=== PATIENT | female | born 1990 | race Caucasian/White ===

== ENCOUNTER 2018-03-13 09:30 | Day surgery (SDC) | payer BC ==
[2018-03-13 10:08] VITALS: BMI 27.3
[2018-03-13 10:59] LABS: FFN Internal QC Analyzer PASS (PASS); FFN Internal QC Cassette PASS (PASS); Fetal Fibronectin Negative (Negative)
[2018-03-13] MEDS ORDERED: Butorphanol Tartrate 1 MG/ML VIAL ONE (12:01)
[2018-03-13] MEDS ORDERED: NIFEdipine 10 MG CAP PO PRN (12:32)
[2018-03-13] MEDS ORDERED: NIFEdipine 10 MG CAP PO SCH (12:45)
[2018-03-13] MEDS: NIFEdipine 10 MG CAP PO SCH ×2 (13:26→14:08)
[2018-03-13 15:31] VITALS: BP 133/83; TEMP 97.8
--- NOTE | 2018-03-13 15:32 | PDOC.EVN ---
Event Note - Event Note Event Note: Nifedipine 20 mg x 3 per protocol ordered by Dr. Sotelo. FHTs remained stable. UCs diminished. DC home per Dr. Sotelo, has f/u appt. set with her.
--- NOTE | 2018-03-14 03:43 | SS ---
DATE OF ADMISSION: 03/13/2018 DATE OF DISCHARGE: 03/13/2018 Labor And Delivery Triage Note REGULAR PHYSICIAN: Elizabeth Sotelo MD EVALUATING PHYSICIAN: Dell Davidson MD CHIEF COMPLAINT: Decreased heart tones in the office, contractions. HISTORY OF PRESENT ILLNESS: Ms. Dennison is a 27-year-old white G1, P0 with an estimated date of confinement of 05/20/2018, who presents from Dr. Sotelo's office with complaints of decreased heart tones with Doppler at her office visit. She was apparently placed on the NST machine and was found to have regular contractions. She was sent here for evaluation. She denies ruptured membranes or vaginal bleeding. Her care has been with Dr. Sotelo. She states that she has had irregular contractions since 18 weeks. PAST MEDICAL HISTORY: Polycystic ovarian syndrome. PAST SURGICAL HISTORY: None. CURRENT MEDICATIONS: vitamins. ALLERGIES: NO KNOWN ALLERGIES. SOCIAL HISTORY: Denies tobacco, alcohol, or drug use. FAMILY HISTORY: Unremarkable. REVIEW OF SYSTEMS: Denies nausea, vomiting, fever, chills, vaginal bleeding or ruptured membranes. PHYSICAL EXAMINATION: VITAL SIGNS: In triage, her vital signs are stable and she is afebrile. GENERAL: She is well-appearing, in no acute distress. ABDOMEN: Soft, nontender, and gravid. heart rate tracing is stable and there are no decelerations. It is reassuring. Uterine contractions were initially seen every 4 to 11 minutes. Pelvic examination after a fibronectin was obtained, showed the cervix to be closed and 50% effaced in this mid position. ASSESSMENT: 1. 30 and 2/7th weeks intrauterine . 2. Reassuring heart rate tracing. 3. contractions, rule out labor. PLAN: Dr. Sotelo has ordered IV fluids and a fibronectin is pending. She will continue to be monitored and observed. Job ID: [id number]
== END 2018-03-13 14:45 | disposition home health service (06) ==
LOC: L&D/OP 09:30
PROVIDERS: ATTEND Obstetrics & Gynecology
DX: O36.8130 Decreased fetal movements, third trimester, not applicable or unspecified (principal); O47.03 False labor before 37 completed weeks of gestation, third trimester; O99.283 Endocrine, nutritional and metabolic diseases complicating pregnancy, third trimester; E28.2 Polycystic ovarian syndrome; Z3A.30 30 weeks gestation of pregnancy
CPT/HCPCS: 82731; J0595

== ENCOUNTER 2018-05-02 14:27 | Day surgery (SDC) | payer BC ==
[2018-05-02 14:54] VITALS: BMI 29.9
--- NOTE | 2018-05-02 20:32 | HP ---
REASON FOR VISIT: Sent over from clinic for elevated blood pressures. HISTORY OF PRESENT ILLNESS: This is a 27-year-old G1, P0, at 37 weeks and 3 days by last menstrual period, who presented to clinic today for routine OB care. She had been monitoring her blood pressures for the last several weeks, and in the last several days, the blood pressures have been 140s/90s at home. The patient endorsed some increase in blurry vision as well. In clinic, her blood pressure was 162/88 and recheck was 140/80. She had a UA in the office that showed negative protein. She was dispositioned for triage visit with serial blood pressures. In triage, she denies any vaginal bleeding, leakage of fluid. Occasional contractions. Denies any vision changes, right upper quadrant pain, or headache. She endorses good movement. REVIEW OF SYSTEMS: Negative except as noted in HPI. OB HISTORY: Prior history of contractions. No other complications during this . PAST MEDICAL HISTORY: Hyperlipidemia. PAST SURGICAL HISTORY: Negative. SOCIAL HISTORY: Negative x3. FAMILY HISTORY: Noncontributory. CURRENT MEDICATIONS: vitamins. ALLERGIES: NO KNOWN DRUG ALLERGIES. PHYSICAL EXAMINATION: VITAL SIGNS: Blood pressure ranges from 99 to 137 over 55, highest up to 91. She has only had one mild range pressures that was 137/91. Other vital signs within normal limits. GENERAL: No acute distress. CARDIAC: Regular rate and rhythm. LUNGS: Clear to auscultation bilaterally. ABDOMEN: Soft, nontender, gravid. EXTREMITIES: No edema, cyanosis, or clubbing. External monitor, baseline is 130, moderate jhvc-ui-oyab variability. Positive accelerations. No decelerations. [place] shows contractions approximately every 2 to 10 minutes. ASSESSMENT/PLAN: This is a 27-year-old G1, P0, at 37 weeks and 3 days for rule out preeclampsia. The patient had a UA in my office that was negative for protein. She has a normal range pressures for 2 hours and on serial blood pressures with the exception of a single 137/91. She will continue to monitor blood pressures at home. She is asymptomatic at this time. The blurry vision had long resolved after leaving the clinic, she has no restrictions and was given strict preeclampsia warnings. She has an appointment with me on Saturday of next week. FHTs are category 1. status is reassuring. Job ID: [id number]
== END 2018-05-02 18:13 | disposition home or self-care (01) ==
LOC: L&D/OP 14:27
PROVIDERS: ATTEND Student in an Organized Health Care Education/Training Program
DX: O99.89 Other specified diseases and conditions complicating pregnancy, childbirth and the puerperium (principal); R03.0 Elevated blood-pressure reading, without diagnosis of hypertension; E78.5 Hyperlipidemia, unspecified; Z3A.37 37 weeks gestation of pregnancy
CPT/HCPCS: 99282

== ENCOUNTER 2018-05-14 22:00 | Inpatient (IN) | payer BC ==
[2018-05-15] MEDS ORDERED: Diphenoxylate HCl/Atropine Tablet PO PRN (06:17)
[2018-05-15] MEDS ORDERED: Butorphanol Tartrate 1 MG/ML VIAL SLOW IVP PRN (06:17)
[2018-05-15] MEDS ORDERED: Ibuprofen 800 MG TAB PO PRN (06:17)
[2018-05-15] MEDS ORDERED: Misoprostol 200 MCG TAB PR PRN (06:17)
[2018-05-15] MEDS ORDERED: Carboprost 250 MCG/ML AMP IM PRN (06:17)
[2018-05-15] MEDS ORDERED: Methylergonovine 0.2 MG/ML VIAL IM PRN (06:17)
[2018-05-15] MEDS ORDERED: Ondansetron PF 4 MG/2 ML Vial IVP PRN ×3 (06:17→20:41)
[2018-05-15] MEDS ORDERED: NS / Oxytocin 40 units/1000ml 1,000 ML IV PRN (06:17)
[2018-05-15] MEDS ORDERED: Acetaminophen 500 MG TAB PO PRN (06:17)
[2018-05-15] MEDS ORDERED: HYDROcodone/Acetaminophen 5/325 mg Tablet PO PRN ×2 (06:17→20:41)
[2018-05-15] MEDS ORDERED: Lidocaine 1% (PF) 30 ML VIAL SC PRN (06:17)
[2018-05-15] MEDS ORDERED: Promethazine HCl 25 MG/ML VIAL IM PRN ×2 (06:17→08:35)
[2018-05-15] MEDS ORDERED: Penicillin G Potassium 5 MILL.UNITS in Sodium Chloride 0.9% 100 ML IVPB SCH (06:30)
[2018-05-15] MEDS ORDERED: NS w/ Oxytocin 10 units 500 ML IV SCH (06:30)
[2018-05-15 07:49] LABS: Hemoglobin 12.9 g/dL (12.0-16.0); Mean Corpuscular HGB CONC 34.1 g/dL (32.0-36.0); Mean Corpuscular Hemoglobin 30.4 pg (27.0-31.0); Mean Corpuscular Volume 89.2 fL (78.0-98.0); Mean Platelet Volume 9.2 fL (7.4-10.4); Platelet Count 191 thou/uL (130-400); RBC Distribution Width 12.1 % (11.5-14.5); Red Blood Cell (RBC) Count 4.23 mill/uL (4.20-5.40); White Blood Cell (WBC) Count 10.6 thou/uL (4.8-10.8)
[2018-05-15] MEDS: Lactated Ringer's 1,000 ML IV SCH ×3 (07:57→14:48)
--- NOTE | 2018-05-15 08:08 | PDOC.LDHP ---
Labor and Delivery H&P Chief complaint: scheduled induction HPI: 27yo at 39w2d by LMP c/w 9w sono for elective IOL. No complaints, no sx PIH. BP has been mild at home yesterday. Good FM. Current gestational age (weeks): 39 Due date: 05/20/18 Dating criteria: last menstrual period Grav: 1 Para: 0 Current complications: none Abnormal US findings: No Past Medical History: HLD Current medications: pre-juan vitamins Previous surgical history: none Allergies/Adverse Reactions: Allergies Allergy/AdvReac Type Severity Reaction Status Date / Time No Known Allergies Allergy Verified 05/15/18 08:04 Social history: none - Physical Exam Vital signs reviewed and normal: yes General: NAD Heart: RRR Lungs: CTAB Abdomen: gravid Extremeties: no edema FHT: category 1 [place] contractions every: 2-4min - Vaginal Exam cm dilated: 3 Effacement: 75% Station: -1 (arom clear) - OB Labs Blood type: A RH: positive Antibody Screen: negative HIV: negative RPR: negative HEPSAg: negative 1 hour GCT: negative GBS: positive Urine drug screen: negative Rubella: immune - Assessment L&D Assessment: elective induction at term - Plan Plan: admit to L&D, labor augmentation if indicated, GBS antibiotic prophylaxis , informed consent obtained, anesthesia consult for pain management
[2018-05-15 08:17] VITALS: BMI 29.9
[2018-05-15 08:29] LABS: HBSAg Index 0.32 S/CO (0-0.99); Hep B Surf Ag Non-Reactive S/CO (NonReactive); Syphilis Antibody Nonreactive (Nonreactive); Syphilis Antibody Index 0.04 S/CO (<1.00 Non-Reactive)
[2018-05-15] MEDS ORDERED: Fentanyl 4 mcg/Bup 0.1% Cadd 100 ML ONE ×2 (08:30→14:44)
[2018-05-15] MEDS ORDERED: Eucerin (Mineral Oil/Petrolatum,White) 30 gm Jar TOP PRN (08:35)
[2018-05-15] MEDS ORDERED: diphenhydrAMINE 50 MG/ML VIAL IVP PRN (08:35)
[2018-05-15] MEDS ORDERED: Lactated Ringer's 500 ML IV PRN (08:35)
[2018-05-15] MEDS ORDERED: ePHEDrine/0.9% NaCl/PF SYRINGE 50 mg/10 ml SLOW IVP PRN (08:35)
[2018-05-15] MEDS ORDERED: Acetaminophen 325 MG TAB PO PRN (08:35)
[2018-05-15] MEDS ORDERED: Naloxone HCl 0.4 mg/ml Vial IVP PRN ×2 (08:35)
[2018-05-15] MEDS ORDERED: Lidocaine 1.5%/Epinephrine 1:200,000 5 ML AMPUL IJ ONE (08:41)
[2018-05-15] MEDS ORDERED: Communication Order-Pharmacy FS SCH (08:45)
[2018-05-15] MEDS: Fentanyl 4 mcg/Bupivacaine 0.1% Cassette 100 ML EPIDURAL SCH ×2 (09:25→14:50)
[2018-05-15] MEDS: Penicillin G 2.5 MILL.units 2.5 MILL.UNITS in Premix Bag 1 BAG IVPB SCH ×4 (11:22→19:43)
[2018-05-15] MEDS ORDERED: Terbutaline Sulfate 1 MG/ML VIAL ONE (13:24)
[2018-05-15] MEDS ORDERED: NS / Oxytocin 40 units/1000ml 1,000 ML ONE (13:27)
--- NOTE | 2018-05-15 14:15 | PDOC.LDPN ---
Labor & Delivery Progress Note - Subjective Subjective: comfortable - Objective Vital signs reviewed and normal: yes General: NAD Uterine fundus: non tender Dilation: 9 Effacement: 100% Station: 1+ FHT: category 2 (after SVE pt had prolonged decel to 70s x 15min, would recover with scalp stim, finally improved with positioning, O2, IVF bolus, juice, pitocin off and terbutaline. ), early decelerations [place] contractions every: 2min FSE placed: yes Resuscitative measures: maternal oxygen, maternal IV fluids, maternal position change Plan: resuscitative measures (restart pit when strip cat 1 x 30min, FHT reassuring after resuscitation. ), other (BP elevated all of the sudden, send PIH labs, no sx PIH)
[2018-05-15 15:03] LABS: ALT (SGPT) 18 U/L (8-55); AST (SGOT) 24 U/L (5-34); Albumin 3.2 g/dL (3.5-5.0); Alkaline Phosphatase 151 U/L (40-150); Anion Gap 14 mmol/L (10-20); BUN (Urea Nitrogen) 10 mg/dL (7.0-18.7); Bilirubin, Total 0.3 mg/dL (0.2-1.2); Calc. Creatinine Clearance 131 mL/min (70-130); Calcium 8.7 mg/dL (7.8-10.44); Carbon Dioxide 22 mmol/L (22-29); Chloride 103 mmol/L (98-107); Estimated GFR-MDRD 82; Globulin 2.7 g/dL (2.4-3.5); Glucose 75 mg/dL (70-105); Potassium 3.6 mmol/L (3.5-5.1); Protein, Total 5.9 g/dL (6.0-8.3); Sodium 135 mmol/L (136-145)
[2018-05-15 17:49] LABS: Creatinine, Urine 40.77 mg/dL (47-110)
--- NOTE | 2018-05-15 18:02 | PDOC.OPDEL ---
OB Operative/Delivery Note Delivery Dr/Surgeon: Ashleigh Assist: n/a Pre-Delivery Diagnosis: elective induction Procedure/Post Delivery Dx: operative vaginal delivery (VE due to NRFHT) Weeks gestation: 39 Anesthesia: epidural - Findings A Sex: female - 1 min: 8 - 5 min: 8 - Additional Findings/Plan Placenta delivered: spontaneous Repaired Obstetrical Laceration: right labial (repaired with 2-0 vicryl in running fashion, excellent hemostasis) Estimated blood loss: 200cc Compilations/Other Findings: NC tight x 1 delivered through Post delivery plan: routine recovery
[2018-05-15] MEDS ORDERED: Milk Of Magnesia 30 ML UDCUP PO PRN (20:41)
[2018-05-15] MEDS ORDERED: Lanolin Ointment 7 GM TUBE TOP PRN (20:41)
[2018-05-15] MEDS ORDERED: Benzocaine-Menthol 82.5 ML CAN TOP PRN (20:41)
[2018-05-15] MEDS ORDERED: Bisacodyl 10 MG SUPP PR PRN (20:41)
[2018-05-15] MEDS ORDERED: Preparation H Ointment 28 GM TUBE PR PRN (20:41)
[2018-05-15] MEDS ORDERED: diphenhydrAMINE 25 MG CAP PO PRN (20:41)
[2018-05-15] MEDS ORDERED: NS / Oxytocin 40 units/1000ml 1,000 ML IV SCH (20:45)
[2018-05-15] MEDS: Docusate Calcium (SURFAK) 240 MG CAP PO SCH (21:48)
[2018-05-16] MEDS: Ibuprofen 800 MG TAB PO SCH ×4 (00:30→21:37)
[2018-05-16] MEDS: Ferrous Sulfate 325 MG TAB PO SCH ×2 (08:52→17:27)
[2018-05-16] MEDS: Prenatal Vitamin 1 TAB PO SCH (08:53)
[2018-05-16] MEDS: Docusate Calcium (SURFAK) 240 MG CAP PO SCH ×2 (08:53→21:37)
[2018-05-16] MEDS ORDERED: Adacel (T-DAP) 0.5 ML SYRINGE IM ONE (09:00)
--- NOTE | 2018-05-16 12:18 | PDOC.PP ---
Post Progress Note Post Day #: 1 PO intake tolerated: yes Flatus: yes Ambulation: yes Vital Signs (12 hours) Temp Pulse Resp BP Pulse Ox 05/16/18 11:33 97.9 F 67 20 133/81 05/16/18 08:06 97.8 F 67 20 130/83 99 05/16/18 06:10 97.7 F 70 20 141/84 H 99 Weight Weight 180 lb - Physical Examination General: NAD Cardiovascular: RRR Respiratory: non-labored breathing Abdominal: no distention, appropriately TTP Fundus firm & at: umb Skin: no rash Neurological: no gross focal deficits Psychiatric: normal affect Result Diagrams: 05/15/18 07:33 05/15/18 14:20 Additional Labs: Post Labs Blood Type A POSITIVE 05/15/18 08:04 Hep Bs Antigen Non-Reactive S/CO (NonReactive) 05/15/18 07:33 - Assessment/Plan PPD1 s/p VAVD PEC- BP nl-mild, no sx PIH, negative labs. Vitals otherwise stable Doing well pain controlled lochia < menses Breastpumping, in NICU will prob be transitioned to low risk today. Rh pos RImm Cont PP care, DC tomorrow.
[2018-05-16] MEDS: HYDROcodone/Acetaminophen 5/325 mg Tablet PO PRN (22:18)
[2018-05-17] MEDS: HYDROcodone/Acetaminophen 5/325 mg Tablet PO PRN (05:56)
[2018-05-17] MEDS: Ibuprofen 800 MG TAB PO SCH ×2 (05:58→13:57)
[2018-05-17] MEDS: Ferrous Sulfate 325 MG TAB PO SCH (07:54)
[2018-05-17 08:09] VITALS: BP 123/86; TEMP 97.8
[2018-05-17] MEDS: Docusate Calcium (SURFAK) 240 MG CAP PO SCH (08:56)
[2018-05-17] MEDS: Prenatal Vitamin 1 TAB PO SCH (08:56)
== END 2018-05-17 17:55 | disposition home or self-care (01) | DRG 807 ==
LOC: L&D 05-15 06:13 → 3SW 05-16 06:36
PROVIDERS: ADMIT Student in an Organized Health Care Education/Training Program; ATTEND Student in an Organized Health Care Education/Training Program
PROC: 10E0XZZ Delivery of Products of Conception, External Approach (ICD-10-PCS; principal; 2018-05-15)
PROC: 0HQ9XZZ Repair Perineum Skin, External Approach (ICD-10-PCS; 2018-05-15)
PROC: 3E033VJ Introduction of Other Hormone into Peripheral Vein, Percutaneous Approach (ICD-10-PCS; 2018-05-15)
DX: O99.89 Other specified diseases and conditions complicating pregnancy, childbirth and the puerperium (principal); Z37.0 Single live birth; R00.1 Bradycardia, unspecified; Z3A.39 39 weeks gestation of pregnancy; O70.0 First degree perineal laceration during delivery; O76 Abnormality in fetal heart rate and rhythm complicating labor and delivery
CPT/HCPCS: 36415; 51702; 80053; 82570; 84156; 85027; 86780; 86850; 86900; 86901; 87340; J2540; J3105; J3490; J7050